=== PATIENT | female | born 1960 ===

== ENCOUNTER 2024-11-20 01:27 | Inpatient (IN) | payer MEDICARE, MEDICAID, SELFPAY ==
--- NOTE | ~2024-11-20 | CT_ITS ---
CLINICAL HISTORY: Mental status change CT head without contrast Comparison: None Findings: No intra-axial mass, midline shift, hydrocephalus, or acute hemorrhage. Nonspecific white matter hypodensities are present with mild volume loss. There is no sinus or mastoid fluid. The orbits are unremarkable. No skull fracture. IMPRESSION: 1. No acute intracranial findings. This document has been electronically signed by: Claude Kay MD, PHD on 11/20/2024 04:25:56
[2024-11-20 01:56] VITALS: BP 143/85; RESP 18; O2SAT 96; BMI 29.3
[2024-11-20 02:02] VITALS: TEMP 36.2
--- NOTE | 2024-11-20 02:32 | ED_ITS ---
HPI - Psych General Chief Complaint: Psychiatric Symptoms Stated Complaint: SECTION 12 Time Seen by Provider: 11/20/24 02:29 Source: EMS and police Mode of arrival: EMS Limitations: no limitations History of Present Illness ED Provider: DR. Marrero HPI Narrative: 64-year-old female brought in by the police after calling 911 48 times as per the police patient found to be loud, disruptive, grossly paranoid, disorganized. Patient is non historian, no old records in our facility for this patient, needed to be chemically restrained with Zyprexa and Benadryl in order to obtain labs. Related Data Home Medications ?Medication ?Instructions ?Recorded ?Confirmed benztropine 1 mg tablet 1 mg PO DAILY 11/20/24 11/20/24 carbamazepine 200 mg tablet 200 mg PO BID 11/20/24 11/20/24 lorazepam 0.5 mg tablet (Ativan) 0.5 mg PO DAILY PRN Anxiety 11/20/24 11/20/24 quetiapine 25 mg tablet (Seroquel) 25 mg PO BEDTIME 11/20/24 11/20/24 Allergies Allergy/AdvReac Type Severity Reaction Status Date / Time haloperidol [From Haldol] AdvReac Severe Unknown Verified 11/20/24 04:14 paliperidone [From Invega] AdvReac Severe Unknown Verified 11/20/24 04:15 Review of Systems 2 Review of Systems: Yes Unobtainable due to mental status PMFSH Past Medical History Medical History (Updated 11/20/24 @ 06:19 by Jenny Marrero MD) Schizoaffective disorder, bipolar type Schizoaffective disorder Endometriosis TBI (traumatic brain injury) Osteoarthritis Fibromyalgia Surgical History (Updated 11/20/24 @ 04:28 by Anthony Nelson RN) Hx of tubal ligation History of laparoscopy History of section Family History Family History (Updated 11/20/24 @ 04:32 by Anthony Nelson RN) Other Asthma COPD (chronic obstructive pulmonary disease) Diabetes Social History Social History Advance Directives: No Do you have a plan to hurt others: No Plan Physical Exam 2 Vital Signs: Vital Signs: Last Vital Signs Temp 97.2 F 11/20/24 02:02 Resp 18 11/20/24 01:56 BP 143/85 H 11/20/24 01:56 Pulse Ox 96 11/20/24 01:56 O2 Del Method Room Air 11/20/24 01:56 BMI result Body Mass Index 29.3 Vital signs have been reviewed and appear to be correct. Blood pressure elevated. Heart rate normal. Respiratory rate normal. Temperature normal. Oxygen saturation normal. Appearance: Alert. Non historian, which make the physical exam very limited Head: Normal external exam. Eyes: PERRLA. EOMI. Conjunctiva and sclera normal. Eyelids normal. ENT: TM's Normal. Pharynx normal. Uvula midline. Moist mucous membranes. No trismus noted. No drooling noted. No muffled voice noted. Neck: Normal inspection. Neck supple. CVS: Unable to assess Respiratory: No respiratory distress. Exam is limited otherwise Abdomen: Unable to assess Back: Unable to assess Skin: Unable to assess Extremities: Extremities exhibit normal range of motion. Neuro: Cranial nerve exam: II-XII are grossly intact No motor deficit. No sensory deficit. Reflexes normal. Patient Orientation: okay hygiene and grooming. Fair eye contact Level of Consciousness: Awake, Patient Behavior: Inappropriate, in cooperative Mood Description: Unable to assess secondary to patient bizarre behavior Affect Description: Unable to assess secondary to patient bizarre behavior Patient Cognition Impaired: No Ability to Follow Directions: Excellent Speech Pattern: Clear, inappropriate and loud, pressured, no dysarthria Memory Description: Hallucinations: Unknown Delusions: Unknown Thought Process: Disorganized Thought Content: Non logical Depressive Symptoms: Unknown Judgement and Insight: Poor. Course Reevaluation(s) Reevaluation #1: Patient will require sedation, medical workup for clearance, psych evaluation patient is not known to us in this hospital. Time: 02:41 Reevaluation #2: CT of the head is unremarkable, labs are unremarkable except for mild UTI will start the patient on Ceftin b.i.d. for 1 week awaiting for care team evaluation. Time: 06:18 Medications Administered Discontinued Medications Generic Name Dose Route Start Last Admin Trade Name Freq PRN Reason Stop Dose Admin Diphenhydramine HCl 50 mg 11/20/24 02:29 11/20/24 02:45 Diphenhydramine Hcl 50 Mg/Ml Vial IM 11/20/24 02:30 50 mg ONCE ONE Administration Olanzapine 10 mg 11/20/24 02:11/20/24 02:45 Olanzapine 10 Mg Vial IM 11/20/24 02:30 10 mg ONCE ONE Administration Medical Decision Making Differential Diagnosis Differential Diagnoses: The differential diagnosis associated with the presentation includes (Medical clearance, electrolyte derangement, severe anemia, acute psychosis, substance abuse.) Admission/Observation Consideration of admission/observation: Escalation of care including admission/observation considered Lab Data 11/20/24 05:18 11/20/24 05:18 Labs: Lab Results 11/20/24 Range/Units 05:18 WBC 9.1 (4.8-10.8) X10*3/uL RBC 4.30 (4.20-5.50) X10*6/uL Hgb 12.1 (12.0-16.0) g/dl Hct 34.8 L (37.0-47.0) % MCV 80.9 (80.0-98.0) fL MCH 28.1 (27.0-33.0) pg MCHC 34.8 (31.0-35.0) g/dl RDW 13.0 (11.0-16.0) % Plt Count 262 (160-400) X10*3/uL MPV 10.6 (9.4-12.3) fL Immature Gran % (Auto) 0.2 (0.0-0.4) % Neut % (Auto) 76.7 H (45-73) % Lymph % (Auto) 18.6 L (20-40) % [place] % (Auto) 4.1 (2-11) % Eos % (Auto) 0.2 (0-4) % Baso % (Auto) 0.2 (0-2) % Lymph # (Auto) 1.7 (1.2-4.9) X10*3/uL [place] # (Auto) 0.4 (0.1-1.2) X10*3/uL Eos # (Auto) 0.0 (0.0-0.4) X10*3/uL Baso # (Auto) 0.0 (0.0-0.2) X10*3/uL Abs Immat Gran (auto) 0.02 (0.00-0.03) X10*3/uL Absolute Neuts (auto) 6.9 (2.0-8.3) x10*3/uL Absolute Nucleated RBC 0.000 (0.0-0.012) X10*3/uL Nucleated RBC % (auto) 0.0 (0.0-0.2) /100WBC Sodium 144 (135-145) mmol/L Potassium 3.3 (3.3-5.1) mmol/L Chloride 112 H (96-108) mmol/L Carbon Dioxide 23 (22-29) mmol/L Anion Gap 12 (12-20) BUN 11 (9-16) mg/dL Creatinine 0.75 (0.5-1.4) mg/dL Estim Creat Clear Calc 67.0 Estimated GFR > 60 Random Glucose 101 (60-115) mg/dL Calcium 9.3 (8.4-10.2) mg/dL Total Bilirubin 0.2 (0.0-1.0) mg/dL AST 24 (5-31) U/L ALT 9 (0-31) U/L Alkaline Phosphatase 81 (39-117) U/L Total Protein 7.3 (6.5-8.0) g/dL Albumin 3.7 (3.5-5.0) g/dL Urine Color Yellow Urine Appearance Clear Urine pH 6.0 (5.0-9.0) Ur Specific [place] <= 1.005 (1.005-1.025) Urine Protein Negative (Neg-Trace) mg/dL Urine Glucose (UA) Negative (Negative) mg/dL Urine Ketones Negative (Negative) mg/dL Urine Blood Trace H (Negative) Urine Nitrite Negative (Negative) Ur Leukocyte Esterase Large (3+) H (Negative) Urine RBC 0-2 (0-2) /HPF Urine WBC 6-10 H (0-5) /HPF Ur Squamous Epith Cells 3-5 (0-2) /HPF Urine Bacteria None Seen (None Seen) Hyaline Casts 0-2 (0-2) /LPF Urine Opiates Screen Not Detected (Not Detect) Ur Buprenorphine Scrn Not Detected (Not Detect) ng/mL Ur Oxycodone Screen Not Detected (Not Detect) ng/mL Urine Methadone Screen Not Detected (Not Detect) ng/mL Urine Fentanyl Screen Not Detected (Not Detect) Ur Barbiturates Screen Not Detected (Not Detect) Ur Phencyclidine Scrn Not Detected (Not Detect) Ur Amphetamines Screen Not Detected (Not Detect) U Benzodiazepines Scrn Not Detected (Not Detect) Urine Cocaine Screen Not Detected (Not Detect) U Marijuana (THC) Screen Not Detected (Not Detect) Ethyl Alcohol < 10 mg/dL Discharge Plan Discharge Clinical Impression: Acute psychosis, Acute UTI Patient Disposition: Still a Patient Prescriptions: No Action benztropine 1 mg Tablet 1 mg PO DAILY carbamazepine 200 mg Tablet 200 mg PO BID lorazepam [Ativan] 0.5 mg Tablet 0.5 mg PO DAILY PRN (Reason: Anxiety) quetiapine [Seroquel] 25 mg Tablet 25 mg PO BEDTIME Print Language: Persian
[2024-11-20] MEDS: diphenhydrAMINE HCL 50 MG/ML VIAL IM (02:45)
[2024-11-20] MEDS: OLANZapine 10 MG VIAL IM ×2 (02:45→12:45)
--- NOTE | 2024-11-20 04:54 | PC.NURSE ---
Patient at the time of arrival, paranoid, loud, disruptive, flashing/sexually inappropriate, intrusive, provider notified/ordered Benadryl 50 mg IM and Olanzapine 10 mg IM, administered as ordered at 0245, currently in bed appears sleeping, blood work pending, urine sample pending, psych consult ordered for med review. refused vital sign, currently in bed appears sleeping, will continue to monitor
[2024-11-20 05:23] LABS: Basophils Percent Auto 0.2 % (0-2); Eosinophils Percent Auto 0.2 % (0-4); Hematocrit 34.8 % (37.0-47.0); Hemoglobin 12.1 g/dl (12.0-16.0); Imm Gran Abs Auto 0.02 X10*3/uL (0.00-0.03); Imm Gran Pct Auto 0.2 % (0.0-0.4); Lymphocytes Absolute Auto 1.7 X10*3/uL (1.2-4.9); Lymphocytes Percent Auto 18.6 % (20-40); MANUAL DIFF FLAG NO; Mean Corpuscular HGB Conc 34.8 g/dl (31.0-35.0); Mean Corpuscular Hemoglobin 28.1 pg (27.0-33.0); Mean Corpuscular Volume 80.9 fL (80.0-98.0); Mean Platelet Volume 10.6 fL (9.4-12.3); Monocytes Absolute Auto 0.4 X10*3/uL (0.1-1.2); Monocytes Percent Auto 4.1 % (2-11); Neutrophils Absolute Auto 6.9 x10*3/uL (2.0-8.3); Neutrophils Percent Auto 76.7 % (45-73); Platelet Count 262 X10*3/uL (160-400); White Blood Count 9.1 X10*3/uL (4.8-10.8)
[2024-11-20 05:24] LABS: Appearance Urine Clear; Color Urine Yellow; Glucose Urine UA Negative (Negative); Leukocyte Esterase Urine Large (3+) (Negative); Nitrite Urine Negative (Negative); Specific Gravity - Urine <= 1.005 (1.005-1.025); UMIC TRIGGER UA YES; Urine Blood Trace (Negative); Urine Ketones Negative (Negative); Urine Protein Negative (Neg-Trace)
[2024-11-20 05:27] LABS: Bacteria Urine None Seen (None Seen); Hyaline Casts Urine 0-2 /LPF (0-2); RBC Urine 0-2 /HPF (0-2)
[2024-11-20 05:40] LABS: Amphetamine Screen Urine Not Detected (Not Detect); Barbiturates, Urine Not Detected (Not Detect); Benzodiazepines Screen Urine Not Detected (Not Detect); Buprenorphine Scr Not Detected (Not Detect); Cannabinoid Screen Urine Not Detected (Not Detect); Cocaine Screen Urine Not Detected (Not Detect); Ethanol < 10 mg/dL; Fentanyl, urine Not Detected (Not Detect); Methadone Screen, Urine Not Detected (Not Detect); Opiate Screen Urine Not Detected (Not Detect); Oxycodone Screen Urine Not Detected (Not Detect); Phencyclidine Screen Urine Not Detected (Not Detect)
[2024-11-20 05:45] LABS: Alanine Aminotransferase 9 U/L (0-31); Albumin Level 3.7 g/dL (3.5-5.0); Alkaline Phosphatase 81 U/L (39-117); Anion Gap 12 (12-20); Aspartate Amino Transferase 24 U/L (5-31); Bilirubin Total 0.2 mg/dL (0.0-1.0); Blood Urea Nitrogen 11 mg/dL (9-16); Calcium 9.3 mg/dL (8.4-10.2); Carbon Dioxide 23 mmol/L (22-29); Chloride 112 mmol/L (96-108); Estimated Glomerular Filt Rate > 60; Glucose Random 101 mg/dL (60-115); Potassium 3.3 mmol/L (3.3-5.1); Sodium 144 mmol/L (135-145); Total Protein 7.3 g/dL (6.5-8.0)
--- NOTE | 2024-11-20 07:54 | PC.NURSE ---
Pt has been sleeping. Chest rise noted. NAD.
--- NOTE | 2024-11-20 08:48 | PC.NURSE ---
Pt is awake, ambulatory in department, shouting at staff and talking about suing [facility]. Making phone calls to her stated human resources partner but doesn't seem to reach anyone. Steady on her feet.
--- NOTE | 2024-11-20 08:54 | PC.NURSE ---
Pt is very accusatory, refusing this RN entry to room. Reactive to environment. Unable to redirect or orient to situation.
--- NOTE | 2024-11-20 09:11 | MHC.CARE ---
Pt meets the criteria for IPLOC. Section 12a in chart. Provider in agreement.
--- NOTE | 2024-11-20 12:32 | PC.NURSE ---
Pt continues to escalate. IM meds will be given Security is busy and we'll try to wait for their presence.
[2024-11-20] MEDS: LORazepam 2 MG/ML VIAL IM (12:45)
--- NOTE | 2024-11-20 13:34 | PC.NURSE ---
Pt was medicated for escalating behaviors by Simona ROGER while this RN was at lunch. As this RN returned patient was up eating then laid down on her own. Was still unwilling to take PO Abx. No longer screaming/threatening staff.
[2024-11-20 13:54] VITALS: BP 98/86; PULSE 81; RESP 16; TEMP 37; O2SAT 99
--- NOTE | 2024-11-20 14:18 | ECG_ITS ---
Test Reason : check qt Blood Pressure : */* mmHG Vent. Rate : 68 BPM Atrial Rate : 68 BPM P-R Int : 184 ms QRS Dur : 68 ms QT Int : 386 ms P-R-T Axes : 59 -19 -4 degrees QTcB Int : 410 ms Normal sinus rhythm Normal ECG No previous ECGs available Referred By: Generic ED Physician Electronically Signed By: Marcos Enciso
--- NOTE | 2024-11-20 14:46 | PM.EVENT ---
Documented by User: Wendy Parker NP 11/20/24 14:47 Event Note Date of Service: 11/20/24 Event Note: Attempted to see patient in [facility] pod but had recently been medicated with Olanzapine 10mg IM and ativan 2mg IM. She was asleep. Will recommend PRN Olanzapine 10mg po q6h prn agitation and ativan 1mg po TID PRN severe anxiety. Time Spent With Patient Time: Total time managing care of this patient today ____ minutes. Documented by User: Rohith Luciano MD 11/22/24 13:26 Event Note Date of Service: 11/22/24
--- NOTE | 2024-11-20 16:30 | PC.NURSE ---
Pt has been sleeping. Chest rise noted.
--- NOTE | 2024-11-20 16:55 | PC.NURSE ---
Report to [facility] on M5.
[2024-11-20 19:29] VITALS: BMI 29.1
[2024-11-20 19:30] VITALS: BP 100/60; PULSE 63; TEMP 36.2; O2SAT 99
--- NOTE | 2024-11-20 19:31 | PC.NURSE ---
Ms. Corral is a 64 year old woman who was admitted to [facility] via wheelchair at 19:00 on a Section 12. Admitting diagnosis is unspecified psychosis. On safety checks q 15 minutes. Patient fell asleep in the wheelchair while being transported to the unit. Skin/ safety check completed. She has a scratch in her trunk midway between and just above her breasts, approximately 1.5 inches in length. Skin check otherwise unremarkable. Patient escorted to her room accompanied by 2 staff as she continued to doze off while being escorted to her room. Vitals and weight obtained and charted. She denies SI/ HI/ AVH. Per DIMA Willis RN, the patient was brought in on a section 12 around 2am and was paranoid, delusional, verbally aggressive and nonsensical and was medicated with IM meds x 2, most recently at 13:45. They also reported that she has a mild UTI and refused antibiotics. She is currently sound asleep in her room. Nursing admission still needs to be completed
--- NOTE | 2024-11-20 21:09 | PC.NURSE ---
Pt refused HS meds at 2100. She is paranoid, delusional and irritable. She states I already had my meds at the POD, I told them I am going home today so leave me alone and get out . She uncooperative with the admission process, refused to sign release of information forms, my contact form, menu, and temporary involuntary hospitalization form. Treatment plans and safety tools done but yet to be signed.
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
[2024-11-21] MEDS: cefuroxime axetiL 250 MG TABLET PO ×2 (11:26→20:15)
[2024-11-21 20:00] VITALS: BP 111/62; PULSE 94; RESP 16; TEMP 36.8; O2SAT 99
[2024-11-22] MEDS: cefuroxime axetiL 250 MG TABLET PO (08:37)
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
[2024-11-22 09:19] LABS: Estimated Average Glucose 108 mg/dL; Hemoglobin A1C 118.4269 umol/L; Hemoglobin A1c % 5.4 % (<6.0)
[2024-11-22 09:21] LABS: Cholesterol 190 mg/dL (<200); HDL Cholesterol 54 mg/dL (>40); LDL Cholesterol Calculated 122 mg/dL (<100); Triglycerides 71 mg/dL (<150)
[2024-11-22 09:29] VITALS: BP 113/67; PULSE 73; TEMP 36.3; O2SAT 100
[2024-11-22 09:38] LABS: Free T4 (Free Thyroxine) 0.91 ng/dL (0.71-1.85); Thyroid Stimulating Hormone 2.59 uIU/mL (0.32-4.0)
[2024-11-22 09:52] LABS: Vitamin B12 264 pg/mL (200-900)
[2024-11-23] MEDS: cefuroxime axetiL 250 MG TABLET PO (08:54)
[2024-11-23 09:06] VITALS: BP 152/69; PULSE 75; TEMP 36.4; O2SAT 97
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
[2024-11-23 20:00] VITALS: RESP 16
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
[2024-11-24 20:00] VITALS: BP 129/69; PULSE 99; TEMP 36.4; O2SAT 99
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
[2024-11-25] MEDS: carBAMazepine 200 MG TABLET PO (11:25)
== END 2024-11-25 12:09 | disposition home or self-care (01) | DRG 885 ==
LOC: HO.ED 16:13 → HO.PM5 16:15
PROVIDERS: Admitting Provider Clinical Nurse Specialist Psychiatric/Mental Health, Adult; Emergency Provider Emergency Medicine; Visit Provider Psychiatry & Neurology Psychiatry
DX: F25.0 Schizoaffective disorder, bipolar type (principal); N39.0 Urinary tract infection, site not specified; M79.7 Fibromyalgia; Z79.899 Other long term (current) drug therapy
CPT/HCPCS: 36415; 70450; 80053; 80061; 80307; 81001; 82607; 82746; 83036; 83735; 84439; 84443; 85025; 93005; 99285; J1200; J2060; J2359; S9485

== ENCOUNTER → 2024-11-20 03:17 | Outpatient (BNV) | payer MEDICARE, MEDICAID, SELFPAY | PROVIDERS: Emergency Provider Emergency Medicine; Visit Provider General Practice | DX: R41.82 Altered mental status, unspecified (principal) | CPT/HCPCS: 70450 ==

== ENCOUNTER → 2024-11-20 14:18 | Outpatient (BNV) | payer MEDICARE, MEDICAID, SELFPAY | PROVIDERS: Admitting Provider Clinical Nurse Specialist Psychiatric/Mental Health, Adult; Emergency Provider Emergency Medicine; Visit Provider Internal Medicine Cardiovascular Disease | DX: Z13.6 Encounter for screening for cardiovascular disorders (principal) | CPT/HCPCS: 93010 ==

== ENCOUNTER → 2024-11-20 16:06 | Outpatient (BNV) | payer MEDICARE, MEDICAID, SELFPAY | PROVIDERS: Admitting Provider Clinical Nurse Specialist Psychiatric/Mental Health, Adult; Emergency Provider Emergency Medicine; Visit Provider Social Worker | DX: F25.0 Schizoaffective disorder, bipolar type (principal); N39.0 Urinary tract infection, site not specified | CPT/HCPCS: 99232 ==

== ENCOUNTER 2025-02-28 20:19 | Inpatient (IN) | payer MEDICARE, MEDICAID, SELFPAY ==
[2025-02-28 20:53] VITALS: BP 133/50; PULSE 96; RESP 16; TEMP 36.4; O2SAT 97; BMI 29.0
[2025-02-28 20:58] VITALS: BP 133/50; PULSE 96; RESP 16; TEMP 36.4; O2SAT 97
[2025-02-28] MEDS: diazePAM 10 MG/2 ML CARTRIDGE 5 MG IM (21:01)
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
[2025-02-28 21:09] LABS: MANUAL DIFF FLAG NO
[2025-02-28 21:11] LABS: Hematocrit 36.1 % (37.0-47.0); Hemoglobin 12.4 g/dl (12.0-16.0); Imm Gran Abs Auto 0.03 X10*3/uL (0.00-0.03); Imm Gran Pct Auto 0.4 % (0.0-0.4); Lymphocytes Absolute Auto 1.8 X10*3/uL (1.2-4.9); Mean Corpuscular HGB Conc 34.3 g/dl (31.0-35.0); Mean Corpuscular Hemoglobin 28.1 pg (27.0-33.0); Mean Corpuscular Volume 81.9 fL (80.0-98.0); NRBC Abs Auto 0.000 X10*3/uL (0.0-0.012); NRBC Pct Auto 0.0 /100WBC (0.0-0.2); Platelet Count 254 X10*3/uL (160-400); Red Blood Count 4.41 X10*6/uL (4.20-5.50); White Blood Count 7.1 X10*3/uL (4.8-10.8)
[2025-02-28 21:25] VITALS: BP 117/39; PULSE 89; RESP 15; O2SAT 99
[2025-02-28 21:28] LABS: Alanine Aminotransferase 7 U/L (0-31); Albumin Level 4.2 g/dL (3.5-5.0); Alkaline Phosphatase 81 U/L (39-117); Anion Gap 13 (12-20); Aspartate Amino Transferase 19 U/L (5-31); Blood Urea Nitrogen 12 mg/dL (9-16); Calcium 9.0 mg/dL (8.4-10.2); Carbon Dioxide 22 mmol/L (22-29); Chloride 109 mmol/L (96-108); Creatinine Clr Calc Pharmacy 47.8; Estimated Glomerular Filt Rate 50; Magnesium 2.1 mg/dL (1.6-2.6); Potassium 3.5 mmol/L (3.3-5.1); Sodium 140 mmol/L (135-145); Total Protein 7.3 g/dL (6.5-8.0)
[2025-02-28 23:04] LABS: Cannabinoid Screen Urine Not Detected (Not Detect)
[2025-03-01 03:52] VITALS: PULSE 58; RESP 16; O2SAT 97
[2025-03-01 04:50] VITALS: BP 135/112; PULSE 63; RESP 16; TEMP 36.6; O2SAT 100
--- NOTE | 2025-03-01 08:26 | MHC.CARE ---
Pt will be an inpatient bedsearch
--- NOTE | 2025-03-01 08:54 | PC.NURSE ---
currently resting quietly at this time, no obvious signs/symptoms of distress noted. respirations even and unlabored. plan for inpatient bed search
--- NOTE | 2025-03-01 09:09 | PC.NURSE ---
patient ambulated to the bathroom, refusing to give urine sample. cranberry juice fixes infections, you don't. I'm not paying thousands of dollars for cranberry juice .
[2025-03-01 09:31] LABS: Appearance Urine Clear; Glucose Urine UA Negative (Negative); PH 6.0 (5.0-9.0); Specific Gravity - Urine 1.015 (1.005-1.025); UMIC TRIGGER UA YES
--- NOTE | 2025-03-01 09:42 | MHC.EDTECH ---
Pt refused to have an EKG done and vitals.
--- NOTE | 2025-03-01 09:52 | PC.NURSE ---
patient refusing ekg at this time
[2025-03-01 11:13] VITALS: BP 131/51; PULSE 74; RESP 16; TEMP 36.4; O2SAT 98
--- NOTE | 2025-03-01 19:33 | PC.NURSE ---
patient appears to remain at rest at present, approached regarding ekg and client declined.
--- NOTE | 2025-03-01 19:54 | MHC.EDTECH ---
pt continues to refuse all care. NO VS/NO EKG. RN AWARE.
--- NOTE | 2025-03-01 22:06 | MHC.EDTECH ---
pt continues to refuse EKG. RN AWARE. PROVIDER AWARE
--- NOTE | 2025-03-02 02:17 | PC.NURSE ---
Took report from off-going RN at 0115 hours. Pt is a 64 y/o female who presents to the ED via EMS from a local hotel after being sectioned by PD, presenting with delusions, hyperverbal, and paranoia. History is significant for scizoaffective disorder/bipolar. Has been been evaluated by Care Team. Pt remains on a section 12 and a bed search is ongoing. Continues to exhibit moments of paranoia while in the ED. Pt has occasionally been verbally aggressive towards staff. Is independent with ambulation and walks with a steady gait. Uses the bathroom as desired. Will continue to monitor for any changes.
--- NOTE | 2025-03-02 02:30 | PC.NURSE ---
At shift change, pt had in her possession a set of Rosary beads that were long enought to be a concern as a strangulation risk. Item was collected from pt and secured in chart.
--- NOTE | 2025-03-02 05:18 | PC.NURSE ---
Pt has been intermittently sleeping during the shift. OOB as desired/needed to use the bathroom, ambulates with a steady gait. Arouses easily to verbal stimulli. Denies any needs at this time. Safety checks continue every 15 min. Will continue to monitor for any changes.
--- NOTE | 2025-03-02 07:38 | PC.NURSE ---
Assumed care of patient at 0645, patient appears to be in no apparent distress this am, calm and cooperative, ate breakfast, offering no complaints to this RN. Continue plan of care for IPLOC
[2025-03-02 07:39] VITALS: RESP 16
--- NOTE | 2025-03-02 08:26 | PHA.MEDREC ---
Addendum entered by Rohit Laureano RPh 03/02/25 08:53: MED REC REVIEWED BY [facility] Original Note: Pharmacy Consult ? Medication Reconciliation Pharmacy reviewed med rec done by nursing. No Known Home Meds confirmed by nursing, spoke with pt and she confirmed she is not taking anything at this time for medications.
[2025-03-02 09:00] VITALS: BP 123/60; PULSE 88; RESP 19; TEMP 36.3; O2SAT 99
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
[2025-03-02 14:20] VITALS: BP 130/68; PULSE 97; RESP 16; TEMP 36.2; O2SAT 98
[2025-03-02 14:36] VITALS: BMI 63.1
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
[2025-03-02 20:00] VITALS: BP 132/78; PULSE 100; RESP 18; TEMP 36.5; O2SAT 97
[2025-03-02] MEDS: carBAMazepine ER 200 MG TAB.ER.12H PO (21:13)
[2025-03-03 07:40] VITALS: BP 89/52; PULSE 73; RESP 17; TEMP 36.4; O2SAT 100
[2025-03-03 08:15] VITALS: BP 128/60
[2025-03-03] MEDS: carBAMazepine ER 200 MG TAB.ER.12H PO (09:23)
--- NOTE | 2025-03-03 14:22 | HO.PSYCHPN ---
Subjective Subjective Date of Service: 03/03/25 Reason For Visit: han psychosis Interim History: calm and cooperative today, not hostile. feels the medications she has taken have been helpful for her. asking about discharge, informed saturday is up and that is when she is likely to go. states she contacted dr. cunningham and her bowling floor desk clerk and believes octavio will be contacting MD. c/o having recently had a waving back and forth feeling, eulalio to dizziness, which has been ameliorated since starting medication. reports slept OK and mood OK. per staff, took HS meds and slept well. Mental Status Exam Mental Status Exam Narrative: own attire, adequately groomed. hair in a long braid. cooperative. no PMA/PMR. speech nml rate, amount, latency, prosody, loudness. thoughts linear and logical, less overtly expressing paranoid delusions. affect constricted, normo-intense, non-labile. mood euthymic. no SI/HI/AVH expressed. Diagnostics Vital Signs (24Hr): Vital Signs - 24 hr 03/02/25 20:00 03/03/25 07:40 03/03/25 08:15 Temperature 97.7 F 97.5 F Pulse Rate 100 73 Respiratory Rate 18 17 Blood Pressure 132/78 89/52 L 128/60 Pulse Oximetry 97 100 Oxygen Delivery Method Room Air Room Air BMI result Body Mass Index 63.1 Labs 02/28/25 21:05 02/28/25 21:05 Medications Medications Current Medications Acetaminophen (Acetaminophen 325 Mg Tablet) 650 mg PO Q6H PRN PRN Reason: Headache/Pain, Scale 1-10 Al Hydroxide/Mg Hydroxide (Magnesium Hydrox/Alum Hydrox 30 Ml Oral.Susp) 30 ml PO Q6H PRN PRN Reason: Heartburn/Nausea Benztropine Mesylate (Benztropine Mesylate 0.5 Mg Tablet) 0.5 mg PO BID [facility] Last Admin: 03/03/25 09:23 Dose: 0.5 mg Carbamazepine (Carbamazepine Er 200 Mg Tab.Er.12h) 200 mg PO BID [facility] Last Admin: 03/03/25 09:23 Dose: 200 mg Fluphenazine HCl (Fluphenazine Hcl 2.5 Mg Tablet) 2.5 mg PO BID [facility] Last Admin: 03/03/25 09:22 Dose: 2.5 mg Loperamide HCl (Loperamide Hcl 2 Mg Capsule) 2 mg PO Q4H PRN PRN Reason: Diarrhea Lorazepam (Lorazepam 1 Mg Tablet) 1 mg PO BID IMTIAZ Last Admin: 03/03/25 09:23 Dose: 1 mg Magnesium Hydroxide (Milk Of Magnesia 30 Ml Oral.Susp) 30 ml PO DAILY PRN PRN Reason: Constipation Nicotine Polacrilex (Nicotine Polacrilex 2 Mg Gum) 2 mg BUCCAL Q2H PRN PRN Reason: Nicotine Cravings Allergies Allergies Allergy/AdvReac Type Severity Reaction Status Date / Time No Known Allergies Allergy Verified 02/28/25 20:57 Assessment & Plan Assessment & Plan (1) Schizoaffective disorder, bipolar type: Status: Acute Code(s): F25.0 - Schizoaffective disorder, bipolar type Plan 03/02: start tegretol 200 BID for mood stabilization. start fluphenazine 2.5 BID for psychosis. 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 check tegretol level. observe for safety and stability. 12b up saturday. 03/03: took meds last night and this morning. notably less hostile today. reports medications are helpful. remains delusional. asking about discharge, informed saturdayb is up and that is likely discharge date. Reason for continued inpatient stay Substantial Risk for: harm to self, harm to others and inability to function Time Spent With Patient Time: Total time managing care of this patient today __25__ minutes.
[2025-03-03 20:15] VITALS: BP 126/70; PULSE 85; RESP 18; TEMP 36.4; O2SAT 96
[2025-03-04 07:00] VITALS: BMI 28.8
[2025-03-04 07:05] VITALS: BP 123/77; PULSE 85; RESP 16; TEMP 37.4; O2SAT 100
[2025-03-04] MEDS: carBAMazepine ER 200 MG TAB.ER.12H PO ×2 (08:42→20:15)
--- NOTE | 2025-03-04 11:28 | P.PNPSI_ITS ---
Subjective Subjective Date of Service: 03/04/25 Reason For Visit: han psychosis Interim History: calm, cooperative, pleasant. c/o dizziness, says she'll take the prolixin after all. per staff, 12b up saturday. pleasant, cheerful, cooperative. eves constricted. refused HS meds. slept 8 hours. refused prolixin this morning, took other meds. Mental Status Exam Mental Status Exam Narrative: own attire, adequately groomed. hair in a long braid. cooperative. no PMA/PMR. speech nml rate, amount, latency, prosody, loudness. thoughts linear and logical, no paranoid delusions expressed. affect constricted, normo- intense, non-labile. mood euthymic. no SI/HI/AVH expressed. Diagnostics Vital Signs (24Hr): Vital Signs - 24 hr 03/03/25 20:15 03/04/25 07:05 Temperature 97.5 F 99.3 F Pulse Rate 85 85 Respiratory Rate 18 16 Blood Pressure 126/70 123/77 Pulse Oximetry 96 100 Oxygen Delivery Method Room Air Room Air BMI result Body Mass Index 28.8 Labs 02/28/25 21:05 02/28/25 21:05 Medications Medications Current Medications Acetaminophen (Acetaminophen 325 Mg Tablet) 650 mg PO Q6H PRN PRN Reason: Headache/Pain, Scale 1-10 Al Hydroxide/Mg Hydroxide (Magnesium Hydrox/Alum Hydrox 30 Ml Oral.Susp) 30 ml PO Q6H PRN PRN Reason: Heartburn/Nausea Benztropine Mesylate (Benztropine Mesylate 0.5 Mg Tablet) 0.5 mg PO BID [facility] Last Admin: 03/04/25 08:43 Dose: 0.5 mg Carbamazepine (Carbamazepine Er 200 Mg Tab.Er.12h) 200 mg PO BID [facility] Last Admin: 03/04/25 08:42 Dose: 200 mg Fluphenazine HCl (Fluphenazine Hcl 2.5 Mg Tablet) 2.5 mg PO BID [facility] Last Admin: 03/04/25 10:35 Dose: 2.5 mg Loperamide HCl (Loperamide Hcl 2 Mg Capsule) 2 mg PO Q4H PRN PRN Reason: Diarrhea Lorazepam (Lorazepam 1 Mg Tablet) 1 mg PO BID [facility] Last Admin: 03/04/25 08:43 Dose: 1 mg Magnesium Hydroxide (Milk Of Magnesia 30 Ml Oral.Susp) 30 ml PO DAILY PRN PRN Reason: Constipation Nicotine Polacrilex (Nicotine Polacrilex 2 Mg Gum) 2 mg BUCCAL Q2H PRN PRN Reason: Nicotine Cravings Allergies Allergies Allergy/AdvReac Type Severity Reaction Status Date / Time No Known Allergies Allergy Verified 02/28/25 20:57 Assessment & Plan Assessment & Plan (1) Schizoaffective disorder, bipolar type: Status: Acute Code(s): F25.0 - Schizoaffective disorder, bipolar type Plan 03/02: start tegretol 200 BID for mood stabilization. start fluphenazine 2.5 BID for psychosis. 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 check tegretol level. observe for safety and stability. 12b up saturday. 03/03: took meds last night and this morning. notably less hostile today. reports medications are helpful. remains delusional. asking about discharge, informed saturdayb is up and that is likely discharge date. 03/04: refused meds last night, took all except for prolixin this morning. then reconsidered after dizzy feeling returned and took prolixin as well. calm, cooperative, pleasant. quietly psychotic. continue to encourage compliane with meds. b up saturday. Reason for continued inpatient stay Substantial Risk for: inability to function Time Spent With Patient Time: Total time managing care of this patient today __35__ minutes.
[2025-03-04 19:10] VITALS: BP 126/73; PULSE 89; RESP 14; TEMP 36.4; O2SAT 99
[2025-03-05 07:41] VITALS: BP 108/64; PULSE 78; RESP 16; TEMP 2.6; TEMP 36.6; O2SAT 99
[2025-03-05] MEDS: carBAMazepine ER 200 MG TAB.ER.12H PO (08:51)
--- NOTE | 2025-03-05 11:25 | P.PNPSI_ITS ---
Subjective Subjective Date of Service: 03/05/25 Reason For Visit: han psychosis Interim History: feeling safe in the hospital but worried about those 5 guys following her around once she leaves. asking MD if there is anything MD can do about it. seom dizziness this morning but drinking water for it, doesn't want meds aside from tegretol. per staff, refusing all meds aside from tegretol. slept 8 hours. Mental Status Exam Mental Status Exam Narrative: own attire, adequately groomed. hair in a long braid. cooperative. no PMA/PMR. speech nml rate, amount, latency, prosody, loudness. thoughts linear and logical, paranoid delusions. affect constricted, normo-intense, non-labile. mood anxious. no SI/HI/AVH expressed. Diagnostics Vital Signs (24Hr): Vital Signs - 24 hr 03/04/25 19:10 03/05/25 07:41 Temperature 97.5 F 36.6 F L Pulse Rate 89 78 Respiratory Rate 14 16 Blood Pressure 126/73 108/64 Pulse Oximetry 99 99 Oxygen Delivery Method Room Air Room Air BMI result Body Mass Index 28.8 Labs 02/28/25 21:05 02/28/25 21:05 Medications Medications Current Medications Acetaminophen (Acetaminophen 325 Mg Tablet) 650 mg PO Q6H PRN PRN Reason: Headache/Pain, Scale 1-10 Al Hydroxide/Mg Hydroxide (Magnesium Hydrox/Alum Hydrox 30 Ml Oral.Susp) 30 ml PO Q6H PRN PRN Reason: Heartburn/Nausea Benztropine Mesylate (Benztropine Mesylate 0.5 Mg Tablet) 0.5 mg PO BID [facility] Last Admin: 03/05/25 08:50 Dose: Not Given Carbamazepine (Carbamazepine Er 200 Mg Tab.Er.12h) 200 mg PO BID [facility] Last Admin: 03/05/25 08:51 Dose: 200 mg Fluphenazine HCl (Fluphenazine Hcl 2.5 Mg Tablet) 2.5 mg PO BID [facility] Last Admin: 03/05/25 08:50 Dose: Not Given Loperamide HCl (Loperamide Hcl 2 Mg Capsule) 2 mg PO Q4H PRN PRN Reason: Diarrhea Lorazepam (Lorazepam 1 Mg Tablet) 1 mg PO BID [facility] Last Admin: 03/05/25 08:51 Dose: Not Given Magnesium Hydroxide (Milk Of Magnesia 30 Ml Oral.Susp) 30 ml PO DAILY PRN PRN Reason: Constipation Nicotine Polacrilex (Nicotine Polacrilex 2 Mg Gum) 2 mg BUCCAL Q2H PRN PRN Reason: Nicotine Cravings Allergies Allergies Allergy/AdvReac Type Severity Reaction Status Date / Time No Known Allergies Allergy Verified 02/28/25 20:57 Assessment & Plan Assessment & Plan (1) Schizoaffective disorder, bipolar type: Status: Acute Code(s): F25.0 - Schizoaffective disorder, bipolar type Plan 03/02: start tegretol 200 BID for mood stabilization. start fluphenazine 2.5 BID for psychosis. 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 check tegretol level. observe for safety and stability. 12b up saturday. 03/03: took meds last night and this morning. notably less hostile today. reports medications are helpful. remains delusional. asking about discharge, informed saturday is up and that is likely discharge date. 03/04: refused meds last night, took all except for prolixin this morning. then reconsidered after dizzy feeling returned and took prolixin as well. calm, cooperative, pleasant. quietly psychotic. continue to encourage compliance with meds. 12 up saturday. 03/05: consistently refusing meds aside from tegretol. expressing preoccupation with paranoid delusions today. MD encouraged pt to take prolixin as well as tegretol. planning for saturday discharge upon 12b expiry. Reason for continued inpatient stay Substantial Risk for: inability to function and rapid decompensation Time Spent With Patient Time: Total time managing care of this patient today __25__ minutes.
[2025-03-05 19:35] VITALS: PULSE 68; RESP 16; TEMP 36.4; O2SAT 99
[2025-03-06 08:00] VITALS: BP 123/56; PULSE 69; RESP 17; TEMP 35.9; O2SAT 100
[2025-03-06] MEDS: carBAMazepine ER 200 MG TAB.ER.12H PO (08:43)
--- NOTE | 2025-03-06 13:17 | HO.PSYCHPN ---
Subjective Subjective Date of Service: 03/06/25 Reason For Visit: han psychosis Interim History: calm, cooperative, pleasant. states she only takes tegretol for neck pain, and she didn't have it last night so she didn't take it. says she has it today so she will take it. reports she is feeling well, showering and praying. per staff, denies Sx. declined tegretol last night. slept 8 hours. Mental Status Exam Mental Status Exam Narrative: own attire, adequately groomed. hair in a long braid. cooperative. no PMA/PMR. speech nml rate, amount, latency, prosody, loudness. thoughts linear and logical, no paranoid delusions expressed. affect flexible, normo-intense, non-labile. mood euthymic. no SI/HI/AVH expressed. Diagnostics Vital Signs (24Hr): Vital Signs - 24 hr 03/05/25 19:35 03/06/25 08:00 Temperature 97.5 F 96.7 F L Pulse Rate 68 69 Respiratory Rate 16 17 Blood Pressure 123/56 L Pulse Oximetry 99 100 Oxygen Delivery Method Room Air Room Air BMI result Body Mass Index 28.8 Labs 02/28/25 21:05 02/28/25 21:05 Medications Medications Current Medications Acetaminophen (Acetaminophen 325 Mg Tablet) 650 mg PO Q6H PRN PRN Reason: Headache/Pain, Scale 1-10 Last Admin: 03/06/25 00:07 Dose: 650 mg Al Hydroxide/Mg Hydroxide (Magnesium Hydrox/Alum Hydrox 30 Ml Oral.Susp) 30 ml PO Q6H PRN PRN Reason: Heartburn/Nausea Benztropine Mesylate (Benztropine Mesylate 0.5 Mg Tablet) 0.5 mg PO BID [facility] Last Admin: 03/06/25 08:43 Dose: Not Given Carbamazepine (Carbamazepine Er 200 Mg Tab.Er.12h) 200 mg PO BID [facility] Last Admin: 03/06/25 08:43 Dose: 200 mg Fluphenazine HCl (Fluphenazine Hcl 2.5 Mg Tablet) 2.5 mg PO BID [facility] Last Admin: 03/06/25 08:44 Dose: Not Given Loperamide HCl (Loperamide Hcl 2 Mg Capsule) 2 mg PO Q4H PRN PRN Reason: Diarrhea Lorazepam (Lorazepam 1 Mg Tablet) 1 mg PO BID [facility] Last Admin: 03/06/25 08:44 Dose: Not Given Magnesium Hydroxide (Milk Of Magnesia 30 Ml Oral.Susp) 30 ml PO DAILY PRN PRN Reason: Constipation Nicotine Polacrilex (Nicotine Polacrilex 2 Mg Gum) 2 mg BUCCAL Q2H PRN PRN Reason: Nicotine Cravings Allergies Allergies Allergy/AdvReac Type Severity Reaction Status Date / Time No Known Allergies Allergy Verified 02/28/25 20:57 Assessment & Plan Assessment & Plan (1) Schizoaffective disorder, bipolar type: Status: Acute Code(s): F25.0 - Schizoaffective disorder, bipolar type Plan 03/02: start tegretol 200 BID for mood stabilization. start fluphenazine 2.5 BID for psychosis. 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 check tegretol level. observe for safety and stability. 12b up saturday. 03/03: took meds last night and this morning. notably less hostile today. reports medications are helpful. remains delusional. asking about discharge, informed saturday 12b is up and that is likely discharge date. 03/04: refused meds last night, took all except for prolixin this morning. then reconsidered after dizzy feeling returned and took prolixin as well. calm, cooperative, pleasant. quietly psychotic. continue to encourage compliance with meds. 12b up saturday. 03/05: consistently refusing meds aside from tegretol. expressing preoccupation with paranoid delusions today. MD encouraged pt to take prolixin as well as tegretol. planning for saturday discharge upon 12b expiry. 03/06: refused tegretol last night, took it this morning. says it's for neck pain, so if no neck pain she won't take it. MD encouraged her to take it anyway. feeling well, no delusions expressed, sleeping well. planning for saturday discharge. continue current mgmt. Reason for continued inpatient stay Substantial Risk for: harm to others and inability to function Time Spent With Patient Time: Total time managing care of this patient today ____ minutes.
[2025-03-06 19:11] VITALS: BP 122/75; PULSE 90; RESP 16; TEMP 36.1; O2SAT 98
[2025-03-07 08:00] VITALS: BP 124/63; PULSE 80; RESP 20; TEMP 36.5; O2SAT 99
[2025-03-07] MEDS: carBAMazepine ER 200 MG TAB.ER.12H PO ×2 (08:21→21:54)
[2025-03-07 10:15] VITALS: BP 120/70; PULSE 80; O2SAT 98
--- NOTE | 2025-03-07 11:20 | PC.NURSE ---
At 1010 during art group pt jack from her chair, tripped and bumped her left knee on the floor. This was witnessed by Monty SEGOVIA. No head strike. Pt denied injury. Dr Billy informed. Pt denied dizziness or lightheadedness. VSS
[2025-03-07 12:58] LABS: Glucose, Whole Blood 122 mg/dL (60-115)
--- NOTE | 2025-03-07 13:04 | HO.PSYCHPN ---
Subjective Subjective Date of Service: 03/07/25 Reason For Visit: han psychosis Interim History: no pain last night but dizzy. planning to discharge tomorrow. remains delusional. per staff, slid to one knee this morning. no head trauma or LOC. took prolixin and ativan only last night. refused tegretol. took tegretol only this morning. eating well. slept 8 hours. Mental Status Exam Mental Status Exam Narrative: own attire, adequately groomed. hair in a long braid. cooperative. no PMA/PMR. speech nml rate, amount, latency, prosody, loudness. thoughts linear and logical, paranoid delusions. affect flexible, normo-intense, non-labile. mood euthymic. no SI/HI/AVH expressed. Diagnostics Vital Signs (24Hr): Vital Signs - 24 hr 03/06/25 19:11 03/07/25 08:00 03/07/25 10:15 Temperature 96.9 F 97.7 F Pulse Rate 90 80 80 Respiratory Rate 16 20 Blood Pressure 122/75 124/63 120/70 Pulse Oximetry 98 99 98 Oxygen Delivery Method Room Air Room Air Room Air BMI result Body Mass Index 28.8 Labs 02/28/25 21:05 02/28/25 21:05 Labs: Laboratory Results - last 48 hr 03/07/25 12:53 POC Glucose 122 H Medications Medications Current Medications Acetaminophen (Acetaminophen 325 Mg Tablet) 650 mg PO Q6H PRN PRN Reason: Headache/Pain, Scale 1-10 Last Admin: 03/06/25 00:07 Dose: 650 mg Al Hydroxide/Mg Hydroxide (Magnesium Hydrox/Alum Hydrox 30 Ml Oral.Susp) 30 ml PO Q6H PRN PRN Reason: Heartburn/Nausea Benztropine Mesylate (Benztropine Mesylate 0.5 Mg Tablet) 0.5 mg PO BID [facility] Last Admin: 03/07/25 08:21 Dose: 0.5 mg Carbamazepine (Carbamazepine Er 200 Mg Tab.Er.12h) 200 mg PO BID [facility] Last Admin: 03/07/25 08:21 Dose: 200 mg Fluphenazine HCl (Fluphenazine Hcl 2.5 Mg Tablet) 2.5 mg PO BID [facility] Last Admin: 03/07/25 08:22 Dose: Not Given Loperamide HCl (Loperamide Hcl 2 Mg Capsule) 2 mg PO Q4H PRN PRN Reason: Diarrhea Lorazepam (Lorazepam 1 Mg Tablet) 1 mg PO BID [facility] Last Admin: 03/07/25 08:22 Dose: Not Given Magnesium Hydroxide (Milk Of Magnesia 30 Ml Oral.Susp) 30 ml PO DAILY PRN PRN Reason: Constipation Nicotine Polacrilex (Nicotine Polacrilex 2 Mg Gum) 2 mg BUCCAL Q2H PRN PRN Reason: Nicotine Cravings Allergies Allergies Allergy/AdvReac Type Severity Reaction Status Date / Time No Known Allergies Allergy Verified 02/28/25 20:57 Assessment & Plan Assessment & Plan (1) Schizoaffective disorder, bipolar type: Status: Acute Code(s): F25.0 - Schizoaffective disorder, bipolar type Plan 03/02: start tegretol 200 BID for mood stabilization. start fluphenazine 2.5 BID for psychosis. 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 check tegretol level. observe for safety and stability. 12b up saturday. 03/03: took meds last night and this morning. notably less hostile today. reports medications are helpful. remains delusional. asking about discharge, informed saturday is up and that is likely discharge date. 03/04: refused meds last night, took all except for prolixin this morning. then reconsidered after dizzy feeling returned and took prolixin as well. calm, cooperative, pleasant. quietly psychotic. continue to encourage compliance with meds. 12b up saturday. 03/05: consistently refusing meds aside from tegretol. expressing preoccupation with paranoid delusions today. MD encouraged pt to take prolixin as well as tegretol. planning for saturday discharge upon 12b expiry. 03/06: refused tegretol last night, took it this morning. says it's for neck pain, so if no neck pain she won't take it. MD encouraged her to take it anyway. feeling well, no delusions expressed, sleeping well. planning for saturday discharge. continue current mgmt. 03/07: remains with paranoid delusions. planning to discharge tomorrow. variably compliant with medications. check labs tonight. Reason for continued inpatient stay Substantial Risk for: inability to function Time Spent With Patient Time: Total time managing care of this patient today ____ minutes.
[2025-03-07 20:00] VITALS: BP 134/92; PULSE 100; RESP 16; TEMP 35.9; O2SAT 96
[2025-03-08 07:35] VITALS: RESP 20; TEMP 35.7; O2SAT 99
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
--- NOTE | 2025-03-08 11:40 | PC.NURSE ---
Patient engages easily. Continues delusional making references to family making up lies. States I am not depressed, they make all that up. The workers here, they know people here, they want me on meds so they can steal from me . It's a game so they can steal from me . Some are gonna get fired for it, I will make sure of it . Denies mood disturbance, denies depression or sadness. Denies anxiety. Denies SI/HI plan or intent. Denies A/V hallucinations. Disorganized. Discharge paperwork reviewed, reports understanding. Walk in clinic reviewed, reports understanding. Discharge medications given to patient, with instruction. Reports understanding however states she will only take medication at night time. All belongings taken with patient. Crisis numbers provided to patient.
== END 2025-03-08 11:18 | disposition home or self-care (01) | DRG 885 ==
LOC: HO.ED 03-01 16:27 → HO.PADLT16 03-02 12:44
PROVIDERS: Admitting Provider Psychiatry & Neurology Psychiatry; Emergency Provider Emergency Medicine; Visit Provider Psychiatry & Neurology Psychiatry
DX: F25.0 Schizoaffective disorder, bipolar type (principal); Z59.01 Sheltered homelessness
CPT/HCPCS: 36415; 80048; 80076; 80307; 81001; 82947; 83735; 85025; 99285; J1200; J1630; J3360; S9485

== ENCOUNTER → 2025-03-02 12:39 | Outpatient (BNV) | payer MEDICARE, MEDICAID, SELFPAY | PROVIDERS: Admitting Provider Psychiatry & Neurology Psychiatry; Emergency Provider Emergency Medicine; Visit Provider Psychiatry & Neurology Psychiatry | DX: F25.0 Schizoaffective disorder, bipolar type (principal) | CPT/HCPCS: 90792; 99231; 99232; 99239 ==